=== PATIENT | female | born 1995 | race Caucasian/White ===

== ENCOUNTER 2019-10-16 00:18 | Emergency (ER) | payer OTHER, MEDICAID, SELFPAY ==
[2019-10-16 00:33] VITALS: BMI 22.1
[2019-10-16 00:37] VITALS: BP 134/82; PULSE 84; RESP 16; TEMP 36.9; O2SAT 100
--- NOTE | 2019-10-16 00:40 | US_ITS ---
WS: [id number] ULTRASOUND EARLY TECHNIQUE: Transabdominal sonography of the pelvis was performed. CLINICAL INFORMATION: Pain LMP: 06/29/2019 Beta hCG: Unknown. COMPARISON: None. FINDINGS: UTERUS AND GESTATIONAL SAC Intrauterine gestations: Single live intrauterine gestation. position is variable with posterior placenta. Placenta grad e 0. Cervix measures 4.9 cm Estimated gestational age: 15w4d heart motion: 141 BPM. Subchorionic hemorrhage: None. Normal CIRO. FREE FLUID None. 2. Estimated gestational age: 15w4d with estimated delivery April 04, 2020 3. Normal CIRO. 4. Cervix is closed measuring 4.9 cm US/US OB limited [id number] IMPRESSION: 1. Single live intrauterine .
--- NOTE | 2019-10-16 00:47 | ED_ITS ---
HPI - Abdominal Pain General: Chief Complaint: Abdominal Pain Stated Complaint: ABD PAIN/15 WEEKS PREG Time Seen by Provider: 10/16/19 00:37 Source: patient Mode of arrival: ambulatory Limitations: no limitations History of Present Illness: HPI narrative: Patient is a 24-year-old female currently at 15 weeks here for abdominal pain that began today. Patient states pain initially began in her epigastric region but that has subsided and now pain seems to be focused in her lower abdomen and pelvis. She is not complaining of any vaginal bleeding, discharge, or leaking of fluid. Reports nausea w/o vomiting. Normal BMs. Reports a fever of 100.0 today. MD elicited complaint: abdominal pain Pertinent past history: none Onset (ago): hour(s) Pain Consistency: intermittent Location: Epigastric and Pelvis Migration to: no migration Exacerbating factors: nothing Relieving factors: nothing Associated Symptoms: Reports fever(s) (100.0) and nausea; Denies change in bowel habits, change in stool character, chills, diarrhea, dysuria, heartburn, hematochezia, melena, syncope and vomiting Review of Systems Const: Reports: fever (100.0); Denies: chills, body aches, change in appetite, fatigue or malaise Eyes: Denies: change in vision or blurry vision ENMT: Denies: enlarged tonsils, painful swallowing or oral sores/lesions Card: Denies: chest pain, palpitations, irregular heart rhythm, lightheadedness, syncope or shortness of breath on exertion Resp: Denies: shortness of breath, productive cough or pain on inspiration GI: Reports: abdominal pain and nausea; Denies: vomiting, heartburn/indigestion, diarrhea, change in bowel habits, change in stool character, blood in stool, black tarry stool, white/light colored stool or fatty stool : Denies: flank pain, difficulty urinating, painful urination, urinary frequency, urinary urgency, genital lesion, genital itching, vaginal odor, vaginal bleeding or vaginal discharge Musc: Denies: neck pain, back pain or joint pain Skin/Breast: Denies: rash Neuro: Denies: headache, numbness in extremities, weakness in extremities or changes in sensation PFSH ED PFSH: Social History Smoking and tobacco status: never smoked Female Reproductive History: : 3 Physical Exam Const: COMMON NORMALS: no apparent distress, average body habitus, oriented x3, no limitations, healthy appearing, alert and well nourished Resp: COMMON NORMALS: normal respiratory effort and clear to auscultation bilaterally AUSCULTATION: clear to auscultation bilaterally Cardio: COMMON NORMALS: regular rate and regular rhythm RATE: regular rate RHYTHM: regular rhythm GI: COMMON NORMALS: normal to inspection, nondistended, normoactive bowel sounds, soft to palpation, no hepatosplenomegaly and no masses PALPATION: Yes soft, Yes tender (mild throughout lower abdomen/pelvis ) and Yes no hepatosplenomegaly : COMMON NORMALS: Yes no CVA tenderness BLADDER/KIDNEY EXAM: Yes no CVA tenderness Back/Pelvis: COMMON NORMALS: no CVA tenderness, thoracic and lumbar spine normal to inspection and thoraco-lumbar ROM normal Neuro: COMMON NORMALS: oriented x3 SENSORIUM/ORIENTATION: Yes alert Skin: COMMON NORMALS: no rashes or lesions noted GENERAL SKIN EXAM: no rashes or lesions noted Course Vital Signs: Vital signs: Vital Signs Temperature 98.5 F 10/16/19 00:37 Pulse Rate 84 10/16/19 00:37 Respiratory Rate 16 10/16/19 00:37 Blood Pressure 134/82 10/16/19 00:37 Pulse Oximetry 100 10/16/19 00:37 MDM - Abdominal Pain Lab Data: Labs: Lab Results 10/16/19 10/16/19 10/16/19 Range/Units 00:50 00:55 00:55 WBC 13.7 H (4.0-10.0) 10^3/ uL RBC 3.99 L (4.1-5.3) 10^6/u L Hgb 13.0 (11.5-15.3) g/dL Hct 38.6 (37.0-47.0) % MCV 96.7 (81-99) fL MCH 32.6 (28.0-34.0) pg MCHC 33.7 (30.0-36.0) g/dL RDW 13.0 (12.1-15.1) % Plt Count 164 (130-400) 10^3/c mm MPV 11.5 H (7.4-10.4) fL Neut % (Auto) 80.7 % Lymph % (Auto) 14.1 % [place] % (Auto) 4.0 % Eos % (Auto) 0.7 % Baso % (Auto) 0.1 % Neut # (Auto) 11.0 H (1.8-7.7) 10^3/u L Lymph # (Auto) 1.9 (0.8-4.8) 10^3/u L [place] # (Auto) 0.6 (0.2-0.9) 10^3/u L Eos # (Auto) 0.1 (0.0-0.8) 10^3/u L Baso # (Auto) 0.0 (0.0-0.1) 10^3/u L Nucleated RBC % (a uto) 0 % Nucleated RBCs # 0.0 /100WBC Sodium 136 (136-145) mmol/L Potassium 3.5 (3.5-5.1) mmol/L Chloride 101 (98-107) mmol/L Carbon Dioxide 22 (22-29) mmol/L Anion Gap 16.5 (5-19) BUN 8 (6-20) mg/dL Creatinine 0.6 (0.5-0.9) mg/dL GFR Calculation 121.8 (90-130) mL/min Glucose 103 (65-115) mg/dL Calcium 9.9 (8.5-10.5) mg/dL Total Bilirubin 0.3 (0.15-1.2) mg/dL AST 14 (0-32) U/L ALT 9 (0-33) U/L Alkaline Phosphata se 76 (35-105) IU/L Total Protein 7.6 (6.6-8.7) g/dL Albumin 3.9 (3.5-5.2) g/dL Globulin 3.7 (1.3-4.6) g/dL Lipase 29 (13-60) U/L Ser , [place] 64[address].00 mIU/mL Urine Color Yellow (Yellow) Urine Appearance Clear (CLEAR) Urine pH 6 (5-7) Ur Specific Gravit y 1.010 (1.005-1.030) Urine Protein Neg (Negative) Urine Glucose (UA) Norm (Normal) Urine Ketones Negative (Negative) Urine Blood Neg (Negative) Urine Nitrate Negative (Negative) Urine Bilirubin Neg (NEGATIVE) Urine Urobilinogen Norm (Negative) mg/dL Ur Leukocyte Tonya ase Negative (Negative) Influenza Type A A g (Negative) POC Influenza B Ag (Negative) 10/16/19 Range/Units 01:00 WBC (4.0-10.0) 10^3/ uL RBC (4.1-5.3) 10^6/u L Hgb (11.5-15.3) g/dL Hct (37.0-47.0) % MCV (81-99) fL MCH (28.0-34.0) pg MCHC (30.0-36.0) g/dL RDW (12.1-15.1) % Plt Count (130-400) 10^3/c mm MPV (7.4-10.4) fL Neut % (Auto) % Lymph % (Auto) % [place] % (Auto) % Eos % (Auto) % Baso % (Auto) % Neut # (Auto) (1.8-7.7) 10^3/u L Lymph # (Auto) (0.8-4.8) 10^3/u L [place] # (Auto) (0.2-0.9) 10^3/u L Eos # (Auto) (0.0-0.8) 10^3/u L Baso # (Auto) (0.0-0.1) 10^3/u L Nucleated RBC % (a uto) % Nucleated RBCs # /100WBC Sodium (136-145) mmol/L Potassium (3.5-5.1) mmol/L Chloride (98-107) mmol/L Carbon Dioxide (22-29) mmol/L Anion Gap (5-19) BUN (6-20) mg/dL Creatinine (0.5-0.9) mg/dL GFR Calculation (90-130) mL/min Glucose (65-115) mg/dL Calcium (8.5-10.5) mg/dL Total Bilirubin (0.15-1.2) mg/dL AST (0-32) U/L ALT (0-33) U/L Alkaline Phosphata se (35-105) IU/L Total Protein (6.6-8.7) g/dL Albumin (3.5-5.2) g/dL Globulin (1.3-4.6) g/dL Lipase (13-60) U/L Ser , [place] i-Qnt mIU/mL Urine Color (Yellow) Urine Appearance (CLEAR) Urine pH (5-7) Ur Specific Gravit y (1.005-1.030) Urine Protein (Negative) Urine Glucose (UA) (Normal) Urine Ketones (Negative) Urine Blood (Negative) Urine Nitrate (Negative) Urine Bilirubin (NEGATIVE) Urine Urobilinogen (Negative) mg/dL Ur Leukocyte Tonya ase (Negative) Influenza Type A A g Negative (Negative) POC Influenza B Ag Negative (Negative) Imaging Data ^: US OB: Radiologist's impression: Sam D-normal OB US; gestational age at approx 15 wks; good movement/heartrate; no abnormalities noted Discharge Plan Discharge Patient Disposition: Home, Self-Care Clinical Impression: Discomfort during Condition: Stable Prescriptions: No Action 1 tab PO DAILY RF: 0 Discharge Orders: Discharge Order (Routine); Ordered 10/16/19 Ordered By: Cintia Soria Referrals: [facility], [Primary Care Provider] - Activity Restrictions/Additional Instructions: As discussed please follow up with your OB provider. Return to ED for worsening pain, fevers, vaginal discharge/bleeding, or any other concerns you may have. Coding Level of Care Code ED Fowl Blood Tester for Rosalie Fwd Exam Detailed
[2019-10-16] MEDS: sodium chloride 0.9% 1,000 ML 100 ML IV (00:58)
[2019-10-16 01:02] LABS: Basophils % 0.1 %; Eosinophils # 0.1 10^3/uL (0.0-0.8); Eosinophils % 0.7 %; Hematocrit 38.6 % (37.0-47.0); Lymphocytes # 1.9 10^3/uL (0.8-4.8); Lymphocytes % 14.1 %; Mean Corpuscular HGB Conc 33.7 g/dL (30.0-36.0); Mean Corpuscular Hemoglobin 32.6 pg (28.0-34.0); Mean Corpuscular Volume 96.7 fL (81-99); Mean Platelet Volume 11.5 fL (7.4-10.4); Monocytes # 0.6 10^3/uL (0.2-0.9); Neutrophils % 80.7 %; Nucleated Red Blood Cells % 0 %; Platelet Count 164 10^3/cmm (130-400); Red Blood Count 3.99 10^6/uL (4.1-5.3); White Blood Count 13.7 10^3/uL (4.0-10.0)
[2019-10-16 01:22] LABS: Bilirubin Urine Neg (NEGATIVE); Blood Urine Neg (Negative); Glucose Urine UA Norm (Normal); Ketones Urine Negative (Negative); Leukocyte Esterase Urine Negative (Negative); Nitrate Urine Negative (Negative); Protein Urine Neg (Negative); Urine Appearance Clear (CLEAR); Urine Color Yellow (Yellow); Urobilinogen Urine Norm (Negative); pH Urine 6 (5-7)
[2019-10-16 01:23] LABS: Add Urine Culture? No
[2019-10-16 01:27] LABS: Influenza A by IFA Negative (Negative); Influenza B by IFA Negative (Negative)
[2019-10-16 01:29] LABS: Alanine Aminotransferase 9 U/L (0-33); Albumin Level 3.9 g/dL (3.5-5.2); Alkaline Phosphatase 76 IU/L (35-105); Anion Gap 16.5 (5-19); Aspartate Amino Transferase 14 U/L (0-32); Blood Urea Nitrogen 8 mg/dL (6-20); Calcium 9.9 mg/dL (8.5-10.5); Carbon Dioxide 22 mmol/L (22-29); Chloride 101 mmol/L (98-107); Creatinine Clr Calc Pharmacy 151.4573; Globulin 3.7 g/dL (1.3-4.6); Glomerular Filtration Rate 121.8 mL/min (90-130); Glucose 103 mg/dL (65-115); Lipase 29 U/L (13-60); Potassium 3.5 mmol/L (3.5-5.1); Sodium 136 mmol/L (136-145); Total Bilirubin 0.3 mg/dL (0.15-1.2); Total Protein 7.6 g/dL (6.6-8.7)
[2019-10-16 02:41] VITALS: BP 132/78; PULSE 72; RESP 18; O2SAT 98
== END 2019-10-16 02:42 | disposition home or self-care (01) ==
PROVIDERS: Emergency Medicine; Emergency Provider Physician Assistant
DX: O26.892 Other specified pregnancy related conditions, second trimester (principal); R10.13 Epigastric pain; R10.2 Pelvic and perineal pain; R50.9 Fever, unspecified; O21.0 Mild hyperemesis gravidarum; Z3A.15 15 weeks gestation of pregnancy
CPT/HCPCS: 36415; 76815; 80053; 81001; 83690; 84702; 85025; 87804; 96360; 96361; 99283; J7030

== ENCOUNTER → 2024-07-06 11:20 | Outpatient (BNVA) | payer MEDICAID, SELFPAY | PROVIDERS: PCP Nurse Practitioner; Visit Provider Student in an Organized Health Care Education/Training Program | DX: M25.561 Pain in right knee (principal); M23.91 Unspecified internal derangement of right knee; S89.91XA Unspecified injury of right lower leg, initial encounter; S83.8X1A Sprain of other specified parts of right knee, initial encounter; X58.XXXA Exposure to other specified factors, initial encounter; Y93.68 Activity, volleyball (beach) (court) | CPT/HCPCS: 73560; 73565 ==

== ENCOUNTER 2024-07-10 12:51 | Outpatient (CLI) | payer MEDICAID, SELFPAY ==
--- NOTE | 2024-07-10 13:00 | MR_ITS ---
WS: [id number] MRI RIGHT KNEE HISTORY: right knee injury COMPARISON: Radiograph 07/06/2024 Anterior cruciate ligament: Intact. Posterior cruciate ligament: Intact. Medial collateral ligament: Intact. Posterior lateral corner structures: Intact. Medial menisci: There is fluid extending along the superior articular surface of the posterior horn t oward the meniscal root. Otherwise the meniscus is normal. Lateral meniscus: Intact. Normal signal, size and shape. Extensor mechanism: Distal quadriceps tendon and patellar tendons are intact. Fluid and soft tissue: Small suprapatellar joint effusion. No Samson's cyst. Osseous and articular structures: Patellofemoral compartment: Focal chondromalacia near the patellar eminence and extending over the me dial patellar facet measures 5.9 mm in diameter and extends through the cartilage. The remaining cart ilage is intact. Medial compartment: Normal. Lateral compartment: Normal. MR/MR knee RT wo con* [id number] IMPRESSION: 1. No ACL tear. 2. 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 No marrow edema. 3. Increased fluid along the superior surface of the posterior horn of the med ial meniscus. No definite tear is identified within the meniscus. 4. Small joint effusion.
== END 2024-07-10 12:52 | disposition home or self-care (01) ==
PROVIDERS: Visit Provider Student in an Organized Health Care Education/Training Program
DX: M22.41 Chondromalacia patellae, right knee (principal); M25.461 Effusion, right knee; S89.91XA Unspecified injury of right lower leg, initial encounter
CPT/HCPCS: 73721